=== PATIENT | female | born 1985 | race Caucasian/White ===

== ENCOUNTER 2016-12-05 09:06 | Emergency (ER) | payer OTHER ==
[~2016-12-05] VITALS: Ht 162.6 cm; Wt 54.5 kg
[~2016-12-05 09:06] MED LIST: DOXY100T2 PO; TRAM50TA2 PO
[2016-12-05 09:09] VITALS: BP 128/76; PULSE 103; RESP 18; O2SAT 100
--- NOTE | 2016-12-05 09:19 | ED.REPORT ---
HPI-Extremity Problem Upper Date of Service Dec 05, 2016 ED Provider: Toño Jeter MD A 30 year old female with history of right shoulder dislocation requiring surgery presents to the ED with right shoulder pain that began just prior to arrival. She reportedly lifted and hyperextended the arm this morning and believes the shoulder is dislocated. Her pain has been constant since onset and she is unable to move the joint. Nursing Notes Stated Complaint: POSS RT ARM DISLOCATED Chief Complaint: Extremity Trauma Nursing Notes Reviewed: Yes Allergies: Coded Allergies: fentanyl (Verified Allergy, Unknown, 01/04/16) Scheduled Doxycycline Hyclate (Doxycycline Hyclate) 100 Mg Tablet 100 MG PO BID Doxycycline Hyclate (Doxycycline Hyclate) 100 Mg Tablet 100 MG PO DAILY Scheduled PRN Hydrocodone-Acetaminophen 5-325 mg (Hydrocodone-Acetaminophen 5-325 mg) 1 Each Tablet 1 TABLET PO Q4H PRN PRN For Pain Tramadol (Tramadol) 50 Mg Tablet 100 MG PO Q6H PRN PRN For Pain General Time Seen by MD: 09:15 Chief Complaint Shoulder injury right Hx Obtained From: Patient Arrived By: Walk-in Onset Occurred: Just prior to arrival Symptom Duration: Since onset Caused by: Accidental Location: : Shoulder right Quality: Painful Severity: Current: Moderate Severity: Maximum: Moderate Associated with: Reports: Unable to move joint Pertinent Negative: Pt denies other symptoms Recent Healthcare: No recent doctor visit, No recent hospitalization Past Medical History Past Medical History Heroin abuse (In recovery) Depression with previous suicide attempts PID Past Surgical History Ectopic surgery Shoulder surgery Smoking History Current Every Day Smoker Social History Alcohol Use: "Social" Drug Use: IV drugs Other Social History: From out of town Ambulatory Status Independent Review of Systems Unable to move joint secondary to pain. Musculoskeletal: Reports: Joint pain (R shoulder) Complete sys rev & neg: except as marked. Physical Exam Initial Vital Signs Vital Signs (First) Date Time Temp Pulse Resp B/P Pulse Ox O2 Delivery O2 Flow Rate FiO2 12/05/16 09:09 36.7 103 18 128/76 100 Room Air Initial VS: Reviewed Head / Eyes: Atraumatic, Normocephalic, PERRL Neck: Supple, Non-tender, Full range of motion Lower Extremities: Vascular intact, Neuro intact, No swelling, No tenderness Skin: Warm, Dry, No cyanosis Neurologic: Alert, Oriented, Nonfocal Psychiatric: Mood/affect normal, Behavior normal, Normal thought content General/Constitutional: Awake, Alert Distress / Hydration: Positive: Distress mild Respiratory / Chest: Atraumatic, No respiratory distress Cardiovascular: Peripheral circulation NL, Pulses = bilaterally Upper Extremity / MS: Atraumatic, Neurologic intact, Vascular intact Right Shoulder: Positive: Deformity present (Gross deformity present), Tenderness present... Interpretation & Diagnostics X-Ray Interpretation Xray Interpretation: IMPRESSION: Questionable inferior medial subluxation of the humeral head. However, as noted above, appeared significantly varies on views secondary to suboptimal positioning. Clinical correlation is recommended for potential dislocation. No visualized fracture. Dictated by: Radha Hermosillo M.D. on 12/05/2016 at 9:51 X-Ray Ordered: Shoulder right Interpretation / Wet Read by: Interpret - Radiologist Xray Interpretation: IMPRESSION: Mild high riding appearance of the humeral head without gross dislocation. Finding can be associated with rotator cuff pathology. No visualized fracture. Dictated by: Radha Hermosillo M.D. on 12/05/2016 at 11:16 X-Ray Ordered: Shoulder right Interpretation / Wet Read by: Interpret - Radiologist Procedures Proced Mod Sedation/Analgesia Time: 10:06 Procedure Performed by: ED physician Sedation Time: 31 - 45 min (32 mins) Consent / Setup: Informed consent provided, Consent from patient, Time-out performed, Hand hygiene observed, Stand sterile technique, Position supine Indication: Shoulder reduction Preparation: machine pecan picker applied, Pulse oximeter applied, Constant attendance, IV access established, Eval last meal time (1.5 hour prior to arrival), Supplemental oxygen, Procedure explained, Suction available, End tidal CO2 mon applied VS Prior to Procedure: All vital signs normal Mallampati: Class & Anatomy: 1 tonsils/uvula/s palate Airway Exam: Normal facial anatomy CVS/Resp Exam: Normal breath sounds Neuro Exam: Alert, Anxious Sedation: Sedation: Propofol (160 mg) ASA Classification: 1 normal healthy patient Response During Procedure: Handled secretions adeq, Maintained airway well, Oxygenation stable, Sedation appropriate, Vital signs stable Complications During/After: None Reversal: None required Mental Status After Procedure: Alert, Response to verbal stim, Response to painful stim, Normal per age Post-Procedure: Alert prior to discharge, Ambulatory with assist, Pt rtn pre- proc baseline, Vital signs normal Attestation: I performed procedure, I performed sedation Reduction Dislocated Shoulder Time: 10:12 Procedure Performed by: ED physician Consent / Setup: Consent from patient, Time-out performed, Oxygen administered , Pulse oximeter applied, machine pecan picker applied, Hand hygiene observed, Stand sterile technique Procedural Sedation/Analgesia: Sedation: Propofol (40 mg) Which Shoulder and Technique: Right shoulder Neurovascular: Intact pre-procedure, Intact post-procedure Post-Procedure / Complications: Procedure successful, Shoulder immobilized, Condition improved, Tolerated procedure well, Patient stable Splint Application - Fx Mgt Time: 10:40 Procedure Performed by: Nurse Type of Immobilization: Sling Post-Procedure / Complications: Cap refill normal, Post splint vascular nl, Post splint neuro nl, Condition improved, Tolerated procedure well, Patient stable Splint Post-Application Eval Extremity Condition: Cap refill 2 sec, Distal sensation intact, Distal motor Intact, No compartment syndrome Re-Eval/Medical Decision Med Decision/Clinical Course 31-year-old female with history of right shoulder dislocations presenting with right shoulder dislocation. I reduce this under conscious sedation. Successful reduction. Neurovascular intact status post reduction. There is no evidence of fracture. She felt much better. He was placed in a splint. She is neurovascularly intact post-splint placement. Discharged home with plans to follow up with orthopedics. Return precautions given. Re-Evaluation/Progress #1: Time of Eval: 09:53 Patient Status: Condition improved Re-Evaluation/Progress Note: Patient would like to be sedated for the reduction. She is informed of all of the precautions. Re-Evaluation/Progress #2: Time of Eval: 10:07 Patient Status: Condition improved Re-Evaluation/Progress Note: Sedation is performed. (Administered - 1007/Physician present - 1026) Right shoulder is reduced. Patient tolerates both procedures well. Re-Evaluation/Progress #3: Time of Eval: 11:21 Patient Status: Condition improved Re-Evaluation/Progress Note: Pt has full ROM in the arm and her pain has improved. Counseled Regarding: Diagnosis, Need for follow-up, When/why to return to ED Discharge & Departure Impression: Primary Impression: Dislocation of right shoulder joint Encounter type: initial encounter Qualified Code: S43.004A - Unspecified dislocation of right shoulder joint, initial encounter Disposition: Home Discharge Condition All VS Reviewed: Yes Condition: Improved Patient Instructions: Shoulder Dislocation (ED) Additional Instructions: Thank you for trusting us with your care this morning. Your emergency department results including examination and X-ray revealed a right shoulder dislocation. This will require follow up with orthopedics. See referral to orthopedics (Dr. Ellis) for a follow up appointment.We were able to successfully reduce the shoulder and you tolerated both the sedation and the reduction very well. Please keep the shoulder immobilized in the splint for the next few days until you are able to follow up with the orthopedist in 1 week. Take 1-2 [place] every 8 hours as needed for pain. Please return to the emergency department for any new or worsening symptoms including any worsening pain, numbness, tingling, or weakness in your fingers. One of the medications you have been prescribed is a Narcotic and may cause drowsiness. Please do not drink, drive or use acetaminophen while on this medication. Referrals: TAMANNA WADE DO (PCP) Mauro Ellis Attestation Portions of this note were transcribed by Agustin Levine. I, Dr. Jeter personally performed the history, physical exam and medical decision-making; I reviewed and confirmed the accuracy of the information in the transcribed note. Signed by: Greg Salgado, 12/05/16 1124. copies to: TAMANNA WADE Ben M MD Dec 05, 2016 09:19 AGUSTIN LEVINE Dec 05, 2016 09:23
[2016-12-05] MEDS ORDERED: Ondansetron 2 mg/mL 2 mL Inj IVPUSH PRN (09:25)
[2016-12-05] MEDS ORDERED: HYDROmorphone 1 mg/mL Inj IVPUSH PRN (09:25)
[2016-12-05] MEDS ORDERED: Propofol 10,000 mCg/mL 100 mL Inj ONE (09:39)
[2016-12-05] MEDS ORDERED: Propofol 10 mg/mL 20 mL Inj ONE (09:40)
[2016-12-05] MEDS ORDERED: Propofol 10 mg/mL 20 mL Inj IVPUSH ONE (09:45)
--- NOTE | 2016-12-05 09:56 | DRSVH ---
PROCEDURE: X-RAY RIGHT SHOULDER, MINIMUM TWO VIEWS ([id number]) INDICATIONS: PAIN TECHNIQUE: 3 views of the shoulder were acquired. COMPARISON: None. FINDINGS: Bones: Suboptimal evaluation secondary to patient positioning. Mild evidence of medial positioning of the humeral head on some views of the others appear to be in anatomic position Soft tissues: No suspicious soft tissue calcifications. IMPRESSION: Questionable inferior medial subluxation of the humeral head. However, as noted above, ap peared significantly varies on views secondary to suboptimal positioning. Clinical correlation is rec ommended for potential dislocation. No visualized fracture. Dictated by: Radha Hermosillo M.D. on 12/05/2016 at 9:51 Approved by: Radha Hermosillo M.D. on 12/05/2016 at 9:54
[2016-12-05 11:00] VITALS: BP 125/84; PULSE 82; RESP 16; O2SAT 98
--- NOTE | 2016-12-05 11:18 | DRSVH ---
PROCEDURE: X-RAY RIGHT SHOULDER, MINIMUM TWO VIEWS ([id number]) INDICATIONS: post-reduction TECHNIQUE: 2 views of the shoulder were acquired. COMPARISON: None. FINDINGS: Bones: Improved appearance of previous glenohumeral dislocation. The humeral head is mildly high ridi ng without gross dislocation. No visualized fracture. Soft tissues: No suspicious soft tissue calcifications. IMPRESSION: Mild high riding appearance of the humeral head without gross dislocation. Finding can be associated with rotator cuff pathology. No visualized fracture. Dictated by: Radha Hermosillo M.D. on 12/05/2016 at 11:16 Approved by: Radha Hermosillo M.D. on 12/05/2016 at 11:17
[2016-12-05] MEDS ORDERED: HYDR-4003 PO (11:24)
[2016-12-05 11:40] VITALS: BP 109/68; PULSE 78; RESP 17; O2SAT 100
== END 2016-12-05 11:30 | disposition home or self-care (01) ==
LOC: SED 09:06
DX: S43.004A Unspecified dislocation of right shoulder joint, initial encounter (principal); X50.9XXA Other and unspecified overexertion or strenuous movements or postures, initial encounter; Y93.89 Activity, other specified; Y92.9 Unspecified place or not applicable; Y99.8 Other external cause status; F32.9 Major depressive disorder, single episode, unspecified; F17.200 Nicotine dependence, unspecified, uncomplicated; Z88.8 Allergy status to other drugs, medicaments and biological substances
CPT/HCPCS: 23650; 73030; 94799; 96374; 96375; 99152; 99153; 99285; J1170; J2405